=== PATIENT | male | born 1975 | race Caucasian/White ===

== ENCOUNTER 2019-12-07 08:50 | Emergency (ER) | payer OTHER ==
[~2019-12-07] VITALS: Ht 165.1 cm; Wt 92.1 kg
[2019-12-07] MEDS ORDERED: ALBU90AE13 INH (09:06)
[2019-12-07 10:48] VITALS: BP 146/101; TEMP 98
== END 2019-12-07 10:49 | disposition home or self-care (01) ==
LOC: ED 08:50
PROC: 3E1B78Z Irrigation of Ear using Irrigating Substance, Via Natural or Artificial Opening (ICD-10-PCS; principal; 2019-12-07)
DX: H61.23 Impacted cerumen, bilateral (principal)
CPT/HCPCS: 99283